=== PATIENT | female | born 1985 | race Caucasian/White ===

== ENCOUNTER → 2018-07-25 | Outpatient (REF) | payer OTHER ==
[2018-07-25 17:00] LABS: ALBUMIN 3.9 GM/DL (3.2-5.2); ALT/SGPT 24 U/L (12-78); BILIRUBIN,TOTAL 0.3 MG/DL (0.2-1.0); BLOOD UREA NITROGEN 13 MG/DL (7-18); CALCIUM LEVEL 9.3 MG/DL (8.5-10.1); CARBON DIOXIDE LEVEL 28 MEQ/L (21-32); CHLORIDE LEVEL 105 MEQ/L (98-107); CREATININE FOR GFR 0.71 MG/DL (0.55-1.30); GLOMERULAR FILTRATION RATE > 60.0 (>60); GLUCOSE, FASTING 97 MG/DL (70-100); POTASSIUM SERUM 4.4 MEQ/L (3.5-5.1); SODIUM LEVEL 138 MEQ/L (136-145); TOTAL PROTEIN 7.4 GM/DL (6.4-8.2)
[2018-07-25 17:18] LABS: BASO % 0.3 % (0.0-1.0); EOS # 0.1 10^3/uL (0.0-0.50); EOS % 1.5 % (0.0-3.0); HEMATOCRIT 37.5 % (36.0-47.0); HEMOGLOBIN 12.9 g/dl (12.0-15.5); LYMPH # 2.6 10^3/uL (1.5-4.5); LYMPH % 34.4 % (24.0-44.0); MEAN CORPUSCULAR HEMOGLOBIN 30.4 pg (27.0-33.0); MEAN CORPUSCULAR HGB CONC 34.4 g/dl (32.0-36.5); MEAN CORPUSCULAR VOLUME 88.2 fl (80.0-96.0); MONO # 0.6 10^3/uL (0.0-0.8); MONO % 8.1 % (0.0-5.0); NEUTROPHILS # 4.2 10^3/uL (1.8-7.7); NEUTROPHILS % 55.4 % (36.0-66.0); PLATELET COUNT, AUTOMATED 342 10^3/uL (150-450); RED BLOOD COUNT 4.25 10^6/uL (4.00-5.40); WHITE BLOOD COUNT 7.5 10^3/uL (4.0-10.0)
[2018-07-25 17:20] LABS: HEMOGLOBIN A1c 4.7 %
== END ==
LOC: M SFHCCLAY 11:35
PROVIDERS: ATTEND Nurse Practitioner Family
DX: G47.30 Sleep apnea, unspecified (principal); Z13.1 Encounter for screening for diabetes mellitus
CPT/HCPCS: 80053; 83036; 85025; G0463

== ENCOUNTER → 2018-09-28 | Outpatient (CLI) | payer OTHER ==
--- NOTE | 2018-10-03 07:47 | SLEEPCENT ---
DATE OF PROCEDURE: 09/28/2018 ORDERED BY: Delfina Ramirez NP Nocturnal polysomnography was performed for evaluation of sleep physiology in this patient with a history of abnormal breathing in sleep, hypnagogic and hypnopomic hallucinations. 7 hours and 12 minutes of data were reviewed. There 299 minutes of sleep identified. Sleep latency was prolonged at 82 minutes. Rapid eye movement (REM) latency was prolonged at 143 minutes. Sleep architecture was fairly well-preserved. There were two REM cycles noted. Overall sleep efficiency was 70.9%. Electrocardiogram showed sinus rhythm with an average heart rate of 80 beats per minute. Electroencephalogram (EEG) showed some coarsening in background. No focal events were identified. There were normal waveforms for awake and sleep. There were only 14 respiratory events identified of 10 seconds in duration or greater for an apnea-hypopnea index within normal limits at 2.8. Some snoring was noted. Arousals from respiratory events in total occurred only 1.6 times per hour there was however significant limb movement activity seen. There were three trains of 30 events and limb movement arousal index was 8.2. IMPRESSION: 1. Periodic limb movement disorder (G47.61). 2. Limb movement arousal index 8.2. RECOMMENDATIONS: Interventions to reduce the frequency of arousals from limb activity may improve the quality of the patient's sleep.
== END ==
LOC: M SLEEP 20:25
PROVIDERS: ATTEND Nurse Practitioner Adult Health
DX: G47.61 Periodic limb movement disorder (principal)

== ENCOUNTER → 2018-12-07 | Outpatient (CLI) | payer OTHER ==
--- NOTE | 2018-12-07 12:07 | REP ---
Hepatobiliary scan and gallbladder ejection fraction: History: Calculus in the gallbladder without cholecystitis. Right upper quadrant pain. Technique: 6.6 mCi of technetium-99m mebrofenin was injected and sequential anterior images are acquired. 65 minutes after the mebrofenin injection, the patient consumed 8 ounces Ensure and an additional 60 minutes of imaging was acquired. Regions of interest are plotted around the gallbladder. Findings: The initial hepatocellular parenchymal uptake phase is normal and homogeneous. Intra- and extra-hepatic bile ducts are labeled by the 10 -minute image. The gallbladder is first labeled on the 10 -minute image. There is normal washout from the liver parenchyma into the gallbladder and small intestine on subsequent images. The gallbladder ejection fraction is 95 %. Values greater than 35 % are considered normal with this technique. Impression: Normal hepatobiliary scan and normal gallbladder ejection fraction. Electronically Signed by Danie Willingham MD 12/07/2018 11:59 A
== END ==
LOC: M RAD 08:15
PROVIDERS: ATTEND Nurse Practitioner Family
DX: R10.11 Right upper quadrant pain (principal)
CPT/HCPCS: 78227; A9537; J2805

== ENCOUNTER → 2018-12-25 | Outpatient (REF) | payer OTHER | LOC: M SFHCCLAY 11:21 | PROVIDERS: ATTEND Nurse Practitioner Family | DX: Z01.419 Encounter for gynecological examination (general) (routine) without abnormal findings (principal) ==

== ENCOUNTER → 2020-02-14 | Outpatient (REF) | payer OTHER | LOC: M SFHCCLAY 10:34 | PROVIDERS: ATTEND Nurse Practitioner Family | DX: Z3A.01 Less than 8 weeks gestation of pregnancy (principal) | CPT/HCPCS: 84702; G0463 ==

== ENCOUNTER 2020-08-11 17:08 | Emergency (ER) | payer OTHER ==
[~2020-08-11] VITALS: Ht 167.6 cm; Wt 72.1 kg
[2020-08-11] MEDS ORDERED: NS 1,000 ML IV ONE (18:00)
[2020-08-11 18:14] LABS: BASO % 0.1 % (0.0-1.0); EOS % 0.2 % (0.0-3.0); HEMOGLOBIN 10.3 g/dl (12.0-15.5); LYMPH # 1.7 10^3/uL (1.5-5.0); LYMPH % 11.8 % (24.0-44.0); MEAN CORPUSCULAR HEMOGLOBIN 30.9 pg (27.0-33.0); MEAN CORPUSCULAR HGB CONC 34.3 g/dl (32.0-36.5); MEAN CORPUSCULAR VOLUME 90.1 fl (80.0-96.0); MONO # 0.6 10^3/uL (0.0-0.8); MONO % 4.4 % (2.0-8.0); NEUTROPHILS # 11.7 10^3/uL (1.5-8.5); NEUTROPHILS % 82.9 % (36.0-66.0); PLATELET COUNT, AUTOMATED 254 10^3/uL (150-450); RED BLOOD COUNT 3.33 10^6/uL (4.00-5.40); WHITE BLOOD COUNT 14.2 10^3/uL (4.0-10.0)
[2020-08-11 18:59] LABS: BLOOD UREA NITROGEN 10 MG/DL (7-18); CALCIUM LEVEL 8.7 MG/DL (8.5-10.1); CARBON DIOXIDE LEVEL 25 MEQ/L (21-32); CHLORIDE LEVEL 105 MEQ/L (98-107); CREATININE FOR GFR 0.66 MG/DL (0.55-1.30); GLOMERULAR FILTRATION RATE > 60.0 (>60); GLUCOSE, FASTING 92 MG/DL (70-100); HCG, SERUM QUANTITATIVE 3361 MIU/ML; POTASSIUM SERUM 3.7 MEQ/L (3.5-5.1); SODIUM LEVEL 140 MEQ/L (136-145)
--- NOTE | 2020-08-11 19:10 | REP ---
INDICATION: VAGINAL BLEEDING. COMPARISON: None. TECHNIQUE: Real-time sonographic evaluation of pelvis performed utilizing transabdominal technique. FINDINGS: Uterus measures 11.7 x 5.7 x 7.9 cm. Endometrial echo complex measures 12 mm. No intrauterine gestational sac or definite retained products of conception are visualized. Right ovary measures 5.6 x 3.3 x 4.2 cm. A simple cyst measures 4.3 x 3.1 x 3.7 cm. Left ovary measures 3.3 x 1.5 x 1.8 cm. No other evidence of adnexal mass or free fluid. IMPRESSION: Endometrial echo complex 12 mm. No intrauterine gestational sac or definite retained products of conception. Simple cyst right ovary 4.3 cm. No other evidence of adnexal mass or free fluid. <Electronically signed by Silvestre Gamino > 08/11/20 [id number]
[2020-08-11 19:28] LABS: RSV AMPLIFICATION NEGATIVE (NEGATIVE)
[2020-08-11 20:27] VITALS: BP 113/68
--- NOTE | 2020-08-11 20:36 | ECGEPIP ---
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
[2020-08-11] MEDS ORDERED: LR 1,000 ML IV ONE (21:15)
[2020-08-11] MEDS ORDERED: RHOGAM 300 MCG (1500 IU) INJ (J2790) IM ONE (21:15)
== END 2020-08-11 22:22 | disposition home or self-care (01) ==
LOC: M ED 17:08
DX: O03.9 Complete or unspecified spontaneous abortion without complication (principal); I45.19 Other right bundle-branch block
CPT/HCPCS: 76801; 80048; 84702; 85025; 86850; 86900; 86901; 87631; 88305; 93005; 93041; 96361; 96372; 99285; J2790

== ENCOUNTER 2020-12-31 20:14 | Emergency (ER) | payer OTHER ==
[~2020-12-31] VITALS: Ht 167.6 cm; Wt 72.8 kg
[2020-12-31 21:55] LABS: BASO % 0.2 % (0.0-1.0); EOS # 0.1 10^3/uL (0.0-0.5); EOS % 1.2 % (0.0-3.0); HEMATOCRIT 37.1 % (36.0-47.0); HEMOGLOBIN 12.8 g/dl (12.0-15.5); LYMPH # 2.6 10^3/uL (1.5-5.0); LYMPH % 30.7 % (24.0-44.0); MEAN CORPUSCULAR HEMOGLOBIN 30.9 pg (27.0-33.0); MEAN CORPUSCULAR HGB CONC 34.5 g/dl (32.0-36.5); MEAN CORPUSCULAR VOLUME 89.6 fl (80.0-96.0); MONO # 0.6 10^3/uL (0.0-0.8); NEUTROPHILS % 60.4 % (36.0-66.0); PLATELET COUNT, AUTOMATED 287 10^3/uL (150-450); RED BLOOD COUNT 4.14 10^6/uL (4.00-5.40); WHITE BLOOD COUNT 8.3 10^3/uL (4.0-10.0)
[2020-12-31] MEDS ORDERED: RHOGAM 300 MCG (1500 IU) INJ (J2790) IM ONE (22:45)
--- NOTE | 2020-12-31 23:09 | REPVR ---
PROCEDURE INFORMATION: Exam: US First Trimester, Transabdominal and US , Transvaginal Exam date and time: 12/31/2020 10:04 PM Age: 35 years old Clinical indication: Lmp or gestational age (in weeks): 6w 1d; Other: Vaginal bleeding; TECHNIQUE: Imaging protocol: Real-time transabdominal obstetrical ultrasound of the maternal pelvis and a first trimester , less than 14 weeks 0 days, with image documentation. Transvaginal imaging was used for better evaluation of the fetus, adnexa, and/or cervix. COMPARISON: No relevant prior studies available. FINDINGS: Gestation: Single live intrauterine gestation. Embryonic/ heart rate: cardiac activity is detected at 99 bpm. Extra-embryonic membranes/Placenta: There is adjacent subchorionic hemorrhage measuring 2.2 x 2.3 cm. Amniotic fluid: Amniotic fluid is normal for gestational age. BIOMETRY: Gestational age (AUA): Estimated gestational age is 6 weeks and 1 day. [place]-Rump length: [place]-rump length measures 40 mm. MATERNAL: Uterus: Uterus measures 8.8 x 5.7 x 7.7 cm. Cervix: Unremarkable. Right adnexa: Right ovary measures 4.4 x 4.0 x 4.0 cm. Simple appearing right ovarian cyst measuring 3.7 cm. Left adnexa: Left ovary is not visualized. Intraperitoneal space: No intraperitoneal free fluid. IMPRESSION: 1. Single live intrauterine gestation as above with adjacent subchorionic hemorrhage. 2. cardiac activity is detected at 99 bpm, low. 3. Follow-up is recommended. Electronically signed by: Henry Magallon On 12/31/2020 23:08:39 PM
[2021-01-01 00:53] LABS: GC DNA AMPLIFICATION NEGATIVE (NEGATIVE)
[2021-01-01 00:57] VITALS: BP 124/76
--- NOTE | 2021-01-01 11:23 | ED PDOC ---
Post-Departure Follow-Up dr rowley faxed 1st trimester us for fu Kasie Sams MD Jan 01, 2021 11:23
== END 2021-01-01 01:17 | disposition home or self-care (01) ==
LOC: M ED 20:14
DX: O20.0 Threatened abortion (principal); O20.8 Other hemorrhage in early pregnancy; Z87.59 Personal history of other complications of pregnancy, childbirth and the puerperium; Z3A.01 Less than 8 weeks gestation of pregnancy
CPT/HCPCS: 76801; 76817; 81001; 84702; 85025; 86850; 86900; 86901; 87210; 87491; 87591; 96372; 99283; J2790

== ENCOUNTER → 2021-01-01 | Outpatient (CLI) | payer OTHER | LOC: M WHC 10:42 | PROVIDERS: ATTEND Obstetrics & Gynecology | DX: Z53.9 Procedure and treatment not carried out, unspecified reason (principal); O36.80X1 Pregnancy with inconclusive fetal viability, fetus 1; Z3A.00 Weeks of gestation of pregnancy not specified ==

== ENCOUNTER → 2021-01-14 | Outpatient (CLI) | payer OTHER ==
[2021-01-16 19:08] LABS: CARDIOLIPIN IGA ANTIBODY <9 APL U/mL (0-11); CARDIOLIPIN IGG ANTIBODY <9 GPL U/mL (0-14); CARDIOLIPIN IGM ANTIBODY <9 MPL U/mL (0-12); CYTOMEGALOVIRUS IgG ANTIBODY >10.00 U/mL (0.00-0.59); CYTOMEGALOVIRUS IgM ANTIBODY <30.0 AU/mL (0.0-29.9); TOXOPLASMA IgG ABY <3.0 IU/mL (0.0-7.1)
[2021-01-23 10:17] LABS: DRVV SCREEN 35.9 SEC
== END ==
LOC: M PLALAB 13:43
PROVIDERS: ATTEND Specialist
DX: N96 Recurrent pregnancy loss (principal)
CPT/HCPCS: 36415; 85730; 86147; 86644; 86645; 86777; 86778; G0463

== ENCOUNTER → 2021-03-03 | Outpatient (CLI) | payer OTHER ==
[2021-03-03 17:05] LABS: BASO % 0.2 % (0.0-1.0); EOS % 0.4 % (0.0-3.0); HEMATOCRIT 36.6 % (36.0-47.0); HEMOGLOBIN 12.7 g/dl (12.0-15.5); LYMPH # 2.1 10^3/uL (1.5-5.0); LYMPH % 18.9 % (24.0-44.0); MEAN CORPUSCULAR HEMOGLOBIN 30.5 pg (27.0-33.0); MEAN CORPUSCULAR HGB CONC 34.7 g/dl (32.0-36.5); MONO # 0.8 10^3/uL (0.0-0.8); MONO % 7.4 % (2.0-8.0); NEUTROPHILS % 72.7 % (36.0-66.0); PLATELET COUNT, AUTOMATED 299 10^3/uL (150-450); RED BLOOD COUNT 4.16 10^6/uL (4.00-5.40)
[2021-03-03 18:09] LABS: HEPATITIS C VIRUS ABY INDEX 0.1 INDEX (<0.8); HIV 1&2 SCREEN CENTAUR NEGATIVE (NEGATIVE)
[2021-03-03 18:55] LABS: GC DNA AMPLIFICATION NEGATIVE (NEGATIVE)
== END ==
LOC: M PLALAB 14:50
PROVIDERS: ATTEND Specialist
DX: Z34.81 Encounter for supervision of other normal pregnancy, first trimester (principal); Z3A.00 Weeks of gestation of pregnancy not specified

== ENCOUNTER → 2021-04-01 | Outpatient (CLI) | payer OTHER | LOC: M PLALAB 11:06 | PROVIDERS: ATTEND Obstetrics & Gynecology | DX: O28.5 Abnormal chromosomal and genetic finding on antenatal screening of mother (principal); Z3A.00 Weeks of gestation of pregnancy not specified; Z23 Encounter for immunization | CPT/HCPCS: 36415; 90471; 90686; G0463 ==

== ENCOUNTER → 2021-05-25 | Outpatient (CLI) | payer OTHER | LOC: M PLALAB 13:29 | PROVIDERS: ATTEND Obstetrics & Gynecology | DX: Z67.91 Unspecified blood type, Rh negative (principal) | CPT/HCPCS: 36415; 86886; G0463 ==

== ENCOUNTER → 2021-06-02 | Outpatient (CLI) | payer OTHER | LOC: M WHC 09:38 | PROVIDERS: ATTEND Advanced Practice Midwife | DX: Z34.82 Encounter for supervision of other normal pregnancy, second trimester (principal); Z3A.15 15 weeks gestation of pregnancy ==

== ENCOUNTER → 2021-06-09 | Outpatient (REF) | payer OTHER | LOC: M SFHCCLAY 15:50 | PROVIDERS: ATTEND Nurse Practitioner Family | DX: J02.9 Acute pharyngitis, unspecified (principal) ==

== ENCOUNTER → 2021-07-14 | Outpatient (CLI) | payer OTHER ==
[2021-07-14 13:34] LABS: HEMATOCRIT 31.9 % (36.0-47.0); HEMOGLOBIN 11.2 g/dl (12.0-15.5); MEAN CORPUSCULAR HEMOGLOBIN 31.2 pg (27.0-33.0); MEAN CORPUSCULAR HGB CONC 35.1 g/dl (32.0-36.5); MEAN CORPUSCULAR VOLUME 88.9 fl (80.0-96.0); PLATELET COUNT, AUTOMATED 228 10^3/uL (150-450); RED BLOOD COUNT 3.59 10^6/uL (4.00-5.40); WHITE BLOOD COUNT 10.1 10^3/uL (4.0-10.0)
[2021-07-14 15:49] LABS: GC DNA AMPLIFICATION NEGATIVE (NEGATIVE)
== END ==
LOC: M PLALAB 09:44
PROVIDERS: ATTEND Obstetrics & Gynecology
DX: Z34.92 Encounter for supervision of normal pregnancy, unspecified, second trimester (principal); Z3A.23 23 weeks gestation of pregnancy
CPT/HCPCS: 36415; 82950; 85027; 86850; 86900; 86901; 87810; 87850; J2790

== ENCOUNTER → 2021-09-15 | Outpatient (REF) | payer OTHER | LOC: M SFHCPLAZ 16:54 | PROVIDERS: ATTEND Obstetrics & Gynecology | DX: Z36.85 Encounter for antenatal screening for Streptococcus B (principal) | CPT/HCPCS: 87081; G0463 ==

== ENCOUNTER → 2021-10-07 | Outpatient (CLI) | payer OTHER ==
[~2021-10-07] MED LIST: COLA100C5 PO; CVS1CAP2 PO; FERR325T81 PO; IBUP80TA PO; PERCOCET PO; PREN200C PO
== END ==
LOC: M LABSMTC 09:07
PROVIDERS: ATTEND Anesthesiology
DX: Z01.812 Encounter for preprocedural laboratory examination (principal); Z20.822 Contact with and (suspected) exposure to COVID-19

== ENCOUNTER 2021-10-12 05:25 | Inpatient (IN) | payer OTHER ==
[~2021-10-12] VITALS: Ht 165.1 cm; Wt 93.2 kg
[~2021-10-12 05:25] MED LIST changes: -COLA100C5 PO; -IBUP80TA PO; -PERCOCET PO
[2021-10-12] MEDS ORDERED: LACTATED RINGER'S 1000 ML IV STA (05:58)
[2021-10-12] MEDS ORDERED: ceFAZolin SOD 2 GM in IV 1 EA IV ONE (06:00)
[2021-10-12] MEDS ORDERED: BICITRA 30ML SOLN UDC PO ONE (06:00)
[2021-10-12] MEDS ORDERED: LR 1,000 ML IV SCH ×2 (06:00→09:25)
[2021-10-12] MEDS ORDERED: HOME MED LIST COMPLETE! XX SCH (06:10)
[2021-10-12 06:13] VITALS: BP 118/73
[2021-10-12 06:52] LABS: HEMOGLOBIN 13.2 g/dl (12.0-15.5); MEAN CORPUSCULAR HGB CONC 35.7 g/dl (32.0-36.5); MEAN CORPUSCULAR VOLUME 89.6 fl (80.0-96.0); PLATELET COUNT, AUTOMATED 160 10^3/uL (150-450); RED BLOOD COUNT 4.13 10^6/uL (4.00-5.40); WHITE BLOOD COUNT 10.4 10^3/uL (4.0-10.0)
[2021-10-12] MEDS ORDERED: OXYTOCIN INJ 10 UNITS/ML VIAL (J2590) As Ordered ONE (07:18)
[2021-10-12] MEDS ORDERED: MORPHINE PRES-FREE INJ 10 MG/10 ML VIAL As Ordered ONE (07:18)
[2021-10-12] MEDS ORDERED: KETOROLAC 60MG 2ML VIAL As Ordered ONE (08:55)
[2021-10-12] MEDS ORDERED: PHENYLEPHRINE 10MG/ML 1ML VIAL (J2370 PER 1) As Ordered ONE (08:55)
[2021-10-12] MEDS ORDERED: LIDOCAINE 1% SDV 30ML VIAL As Ordered ONE (08:55)
[2021-10-12] MEDS ORDERED: ONDANSETRON 4MG/2ML VIAL As Ordered ONE (08:55)
[2021-10-12] MEDS ORDERED: OXYTOCIN 30 UNITS IN 0.9% NaCl 500ML IV BAG (J2590) As Ordered ONE (08:55)
[2021-10-12] MEDS: PRENATAL VITAMINS CHEWABLE TABLET PO SCH (09:00)
[2021-10-12] MEDS: DOCUSATE SODIUM 100MG CAPSULE PO SCH ×2 (09:00→20:39)
[2021-10-12] MEDS ORDERED: PERCOCET 5MG/325MG TAB PO PRN ×2 (09:05)
[2021-10-12] MEDS ORDERED: SIMETHICONE 80MG CHEW TAB PO PRN (09:05)
[2021-10-12] MEDS ORDERED: RHOGAM 300 MCG (1500 IU) INJ (J2790) IM SCH (09:05)
[2021-10-12] MEDS ORDERED: OXYTOCIN DRIP 30 UNITS in IV 1 EA IV SCH (09:05)
[2021-10-12] MEDS ORDERED: METHYLERGONOVINE MALEATE 0.2 MG/ML VIAL (J2210) IM PRN (09:05)
[2021-10-12] MEDS ORDERED: MORPHINE 4 MG/ML 1ML VIAL/SYRINGE IV PRN (09:05)
[2021-10-12] MEDS ORDERED: ONDANSETRON 4MG/2ML VIAL IV PRN ×2 (09:05→09:25)
[2021-10-12] MEDS ORDERED: PERCOCET PO (09:19)
[2021-10-12] MEDS ORDERED: COLA100C5 PO (09:19)
[2021-10-12] MEDS ORDERED: IBUP80TA PO (09:19)
[2021-10-12] MEDS ORDERED: oxyCODONE 5MG TAB PO PRN (09:25)
[2021-10-12] MEDS ORDERED: fentaNYL 100 MCG/2 ML INJECTION IV PRN (09:25)
[2021-10-12] MEDS: LR 1,000 ML IV SCH ×2 (09:35→17:13)
[2021-10-12 10:45] VITALS: BP 112/70
[2021-10-12 11:15] VITALS: BP 112/70
[2021-10-12] MEDS: KETOROLAC 30 MG/ML 1ML VIAL IV SCH ×2 (14:30→20:39)
[2021-10-12 18:00] VITALS: BP 103/60
[2021-10-12 22:00] VITALS: BP 98/54
[2021-10-13] MEDS: LR 1,000 ML IV SCH (01:05)
[2021-10-13 02:00] VITALS: BP 95/51
[2021-10-13] MEDS: KETOROLAC 30 MG/ML 1ML VIAL IV SCH (02:30)
[2021-10-13 05:57] VITALS: BP 104/51
[2021-10-13 06:01] LABS: HEMATOCRIT 30.7 % (36.0-47.0); MEAN CORPUSCULAR HEMOGLOBIN 31.2 pg (27.0-33.0); MEAN CORPUSCULAR HGB CONC 34.9 g/dl (32.0-36.5); MEAN CORPUSCULAR VOLUME 89.5 fl (80.0-96.0); PLATELET COUNT, AUTOMATED 156 10^3/uL (150-450); RED BLOOD COUNT 3.43 10^6/uL (4.00-5.40); WHITE BLOOD COUNT 13.4 10^3/uL (4.0-10.0)
[2021-10-13 06:10] LABS: HEMOGLOBIN 10.7 g/dl (12.0-15.5)
[2021-10-13] MEDS: PRENATAL VITAMINS CHEWABLE TABLET PO SCH (07:33)
[2021-10-13] MEDS: DOCUSATE SODIUM 100MG CAPSULE PO SCH ×2 (07:33→21:00)
[2021-10-13] MEDS: IBUPROFEN 800 MG TAB PO SCH ×3 (09:21→17:40)
[2021-10-13 10:00] VITALS: BP 123/61
[2021-10-13 14:00] VITALS: BP 109/57
[2021-10-13 18:00] VITALS: BP 120/74
[2021-10-13 22:00] VITALS: BP 106/57
[2021-10-14 06:00] VITALS: BP 104/50
[2021-10-14] MEDS ORDERED: MEASLES,MUMPS,RUBELLA VACCINE INJ (MMR-II) (90707) SC.IMMUN ONE (09:00)
[2021-10-14] MEDS: DOCUSATE SODIUM 100MG CAPSULE PO SCH (09:07)
[2021-10-14] MEDS: PRENATAL VITAMINS CHEWABLE TABLET PO SCH (09:08)
[2021-10-14] MEDS: IBUPROFEN 800 MG TAB PO SCH (10:30)
== END 2021-10-14 12:50 | disposition home or self-care (01) | DRG 764 ==
LOC: M LDI 05:25 → M OBS 10:43
PROVIDERS: ADMIT Obstetrics & Gynecology; ATTEND Obstetrics & Gynecology
PROC: 10E0XZZ Delivery of Products of Conception, External Approach (ICD-10-PCS; 2021-10-12)
PROC: 0UT70ZZ Resection of Bilateral Fallopian Tubes, Open Approach (ICD-10-PCS; principal; 2021-10-12 07:30)
DX: O34.211 Maternal care for low transverse scar from previous cesarean delivery (principal); Z37.0 Single live birth; Z3A.39 39 weeks gestation of pregnancy; Z30.2 Encounter for sterilization

== ENCOUNTER → 2022-04-20 | Outpatient (REF) | payer OTHER ==
[~2022-04-20] MED LIST changes: +COLA100C5 PO; +IBUP80TA PO; +PERCOCET PO
== END ==
LOC: M SFHCCLAY 17:24
PROVIDERS: ATTEND Nurse Practitioner Family
DX: Z01.419 Encounter for gynecological examination (general) (routine) without abnormal findings (principal)

== ENCOUNTER → 2022-08-31 | Outpatient (REF) | payer OTHER | LOC: M SFHCCLAY 09:07 | PROVIDERS: ATTEND Physician Assistant | DX: R50.9 Fever, unspecified (principal) | CPT/HCPCS: 87486; 87581; 87633; 87798; 87880; G0463 ==